=== PATIENT | male | born 1955 | race Caucasian/White ===

== ENCOUNTER 2016-12-04 11:01 | Emergency (ER) | payer BC, OTHER ==
[~2016-12-04] VITALS: Ht 182.9 cm; Wt 90.7 kg
[~2016-12-04 11:01] MED LIST: IPRA0.064; METH10T PO; OXY20CRT PO; PRE1T PO; TAMS0.4C36 PO; VERA180T34 PO
[2016-12-04 11:11] VITALS: BP 0/0
[2016-12-04] MEDS ORDERED: EPINEPHrine HCL 1 MG/10 ML SYRG IV ONE (13:01)
[2016-12-04] MEDS ORDERED: SODIUM BICARBONATE 8.4% INJ 50ML SYRINGE IV ONE (13:01)
[2016-12-04] MEDS ORDERED: CALCIUM CHLOR(10%) 100MG/ML 10ML SYRINGE IV ONE (13:01)
== END 2016-12-04 11:54 | disposition expired ==
LOC: EDUNIT# 11:01 → ER 11:01
DX: I46.9 Cardiac arrest, cause unspecified (principal); Z86.19 Personal history of other infectious and parasitic diseases
CPT/HCPCS: 92950; 99285; J0171